=== PATIENT | female | born 1960 | race Caucasian/White ===

== ENCOUNTER 2017-12-20 09:52 | Emergency (ER) | payer BC ==
[~2017-12-20] VITALS: Ht 160 cm; Wt 75.0 kg
[~2017-12-20 09:52] MED LIST: AMOX500T PO; PROMSYP PO; TRIA.1%T TOP; Z.0.NO CURRENT MEDS
[2017-12-20 09:53] VITALS: BP 117/65; PULSE 76; RESP 16; TEMP 97.9; O2SAT 100
[2017-12-20] MEDS ORDERED: TRAM50 PO (12:13)
--- NOTE | 2017-12-20 12:13 | PD ---
HPI Chief Complaint: Musculoskeletal Complaint Time Seen by Provider: 11:40 Travel History International Travel<30 days: No Contact w/Intl Traveler<30days: No Traveled to known affect area: No History of Present Illness HPI This is a 57-year-old female here with nontraumatic right knee pain ongoing intermittently for 3-4 months. She reports the pain is worse with walking and standing for long periods of time. Slightly relieved with rest. She believes arthritis. She denies fever chills. No lower extremity swelling. She does report the knee intermittently swells. Symptom severity is moderate. PFSH Past Medical History Medical History: Denies Significant Hx Tetanus Vaccination: < 5 Years Past Surgical History Surgical History: No Previous Surgery Social History Alcohol Use: Yes (OCCIASIONAL) Tobacco Use: Yes (1 PACK A DAY FOR 30 YEARS) Substance Use: No Allergies-Medications (Allergen,Severity, Reaction): Coded Allergies: No Known Allergies (Verified Allergy, Mild, 12/20/17) Reported Meds & Prescriptions Reported Meds & Active Scripts Active No Active Prescriptions or Reported Medications Review of Systems Except as stated in HPI: all other systems reviewed are Neg General / Constitutional: No: Fever Eyes: No: Visual changes HENT: No: Headaches Cardiovascular: No: Chest Pain or Discomfort Respiratory: No: Shortness of Breath Gastrointestinal: No: Abdominal Pain Physical Exam Narrative GENERAL: Alert and well-appearing 57-year-old female SKIN: Warm and dry. HEAD: Normocephalic. EYES: No injection or drainage. NECK: Supple, trachea midline. CARDIOVASCULAR: Regular rate and rhythm RESPIRATORY: Breath sounds equal bilaterally. No accessory muscle use. GASTROINTESTINAL: Abdomen soft, non-tender, nondistended. MUSCULOSKELETAL: No cyanosis, or edema. Right lower extremity: Tenderness to the anterior aspect of the knee. The joint is stable. No joint effusion. No posterior knee tenderness. No lower extremity edema. 2+ popliteal and dorsal pedis pulses. Brisk cap refill BACK: Nontender without obvious deformity. No CVA tenderness. Data Data Last Documented VS Vital Signs Date Time Temp Pulse Resp B/P (MAP) Pulse Ox O2 Delivery O2 Flow Rate FiO2 12/20/17 09:53 97.9 76 16 117/65 (82) 100 MDM Medical Decision Making Medical Screen Exam Complete: Yes Emergency Medical Condition: Yes Differential Diagnosis Osteoarthritis, minor sprain, other Narrative Course This is a 57-year-old female here with intermittent anterior right near pain. I suspect that this is osteoarthritis. No evidence of infection, claudication, DVT. She was offered an x-ray for which she declined. Patient will be placed in an Dimitrios wrap. Instructed to take Tylenol or ibuprofen. Follow-up with orthopedic doctor. He agrees to this plan Diagnosis Primary Impression: Knee pain Qualified Codes: M25.561 - Pain in right knee Referrals: Channing Padilla MD Orthopedist Additional Instructions: Dimitrios wrap for support. Tylenol or ibuprofen for pain. Ultram as needed for severe pain. Follow-up with an orthopedic doctor Scripts Tramadol (Ultram) 50 Mg Tab 50 MG PO Q6H Y for PAIN, #10 TAB 0 Refills Prov: Minerva Dove 12/20/17 Disposition: 01 DISCHARGE HOME Condition: Stable Minerva Dove Dec 20, 2017 12:13
== END 2017-12-20 12:24 | disposition home or self-care (01) ==
LOC: NEPK 09:52
DX: M25.561 Pain in right knee (principal); F17.200 Nicotine dependence, unspecified, uncomplicated
CPT/HCPCS: 99283